=== PATIENT | male | born 1975 | race Caucasian/White ===

== ENCOUNTER 2023-02-22 09:44 | Outpatient (CLI) | payer OTHER | END 2023-02-22 09:45 | disposition home or self-care (01) | LOC: CSHRAD 09:44 | PROVIDERS: ATTEND Orthopaedic Surgery | DX: M54.50 Low back pain, unspecified (principal); M47.816 Spondylosis without myelopathy or radiculopathy, lumbar region | CPT/HCPCS: 72100 ==

== ENCOUNTER 2023-06-05 13:47 | Outpatient (CLI) | payer OTHER | END 2023-06-05 13:48 | disposition home or self-care (01) | LOC: CSHLAB 13:47 | PROVIDERS: ATTEND Orthopaedic Surgery | DX: Z01.818 Encounter for other preprocedural examination (principal); M54.50 Low back pain, unspecified; M54.16 Radiculopathy, lumbar region | CPT/HCPCS: 86850; 86900; 86901; 93005; 93010 ==

== ENCOUNTER 2023-06-06 07:34 | Inpatient (IN) | payer OTHER ==
[2023-06-05 12:42] VITALS: BMI 27.0
[~2023-06-06 07:34] MED LIST: Bupivacaine 0.25% HCL 30 ML VIAL ONE; EPINEPHrine 1 MG/ML VIAL ONE
[2023-06-06] MEDS ORDERED: Midazolam HCl 5 mg/5 ml Vial ONE (07:59)
[2023-06-06] MEDS ORDERED: Fentanyl 250 MCG/5 ML VIAL ONE (07:59)
[2023-06-06] MEDS ORDERED: Dexamethasone 4 mg/ml Vial ONE (07:59)
[2023-06-06] MEDS ORDERED: SUCCINYLCHOLINE/SOD CL,ISO/PF 200 MG/10 ML SYRINGE FS ONE (07:59)
[2023-06-06] MEDS ORDERED: Lidocaine 2% PF 5 ML VIAL ONE (07:59)
[2023-06-06] MEDS ORDERED: PROPOFOL 40 ML ONE (07:59)
[2023-06-06] MEDS ORDERED: Ondansetron PF 4 MG/2 ML Vial ONE (07:59)
[2023-06-06] MEDS ORDERED: Rocuronium Bromide 10 MG/ML (10ML VIAL) ONE (07:59)
[2023-06-06] MEDS ORDERED: KETAMINE 100 MG/ML (5ML VIAL) ONE (08:07)
[2023-06-06] MEDS ORDERED: Propofol 1,000 MG/100 ML VIAL IV ONE ×4 (08:08→12:01)
[2023-06-06] MEDS ORDERED: Sevoflurane 250 ML INH ANEST BOTTLE ONE (08:09)
[2023-06-06] MEDS ORDERED: Famotidine/PF 20 mg/2ml Vial ONE (08:23)
[2023-06-06] MEDS ORDERED: CEFAZOLIN 2 GM VIAL ONE ×3 (09:03→09:18)
[2023-06-06] MEDS ORDERED: EPINEPHrine 1 MG/ML AMP ONE (09:18)
[2023-06-06] MEDS ORDERED: Bupivacaine 0.25% HCL 30 ML VIAL ONE (09:18)
[2023-06-06] MEDS ORDERED: SUGAMMADEX SODIUM 200 MG/2 ML VIAL ONE (09:25)
[2023-06-06] MEDS ORDERED: HYDROmorphone 0.5 MG/0.5 ML SYRINGE ONE (09:33)
[2023-06-06] MEDS ORDERED: ePHEDrine Sulfate 50 MG/10 ML VIAL ONE (10:06)
[2023-06-06] MEDS ORDERED: fentaNYL 50 mcg/mL 1 mL Vial ONE (13:20)
[2023-06-06] MEDS ORDERED: PHENYLEPHRINE-NS 100 MCG/ML 10 ML SYRINGE ONE (13:44)
[2023-06-06] MEDS ORDERED: TETANUS, DIPHTHERIA TOX,ADULT (TDVAX) 0.5 ML VIAL IM ONE (13:58)
[2023-06-06] MEDS ORDERED: Morphine 4 MG/ML VIAL SLOW IVP PRN (13:58)
[2023-06-06] MEDS ORDERED: Communication Order-Pharmacy FS PRN (14:00)
[2023-06-06] MEDS ORDERED: SILDENAFIL CITRATE 100 MG PO PRN (14:01)
[2023-06-06] MEDS ORDERED: Fluticasone Propionate Nasal Spray 16 gm Bottle NASAL PRN (14:01)
[2023-06-06] MEDS ORDERED: Acetaminophen 500 MG TAB PO PRN (14:01)
[2023-06-06] MEDS ORDERED: Dextrose 50% Abboject 50 ML SYRINGE SLOW IVP PRN (14:05)
[2023-06-06] MEDS ORDERED: Dextrose 5% in Water 1,000 ML IV PRN (14:05)
[2023-06-06] MEDS ORDERED: Glucagon 1 MG/ML KIT IM PRN (14:05)
[2023-06-06] MEDS: CEFAZOLIN 2 GM in Sodium Chloride 0.9% 100 ML IVPB SCH ×2 (16:08→22:32)
[2023-06-06] MEDS: HYDROcodone/Acetaminophen 10/325 mg Tablet PO PRN ×2 (18:20→22:27)
[2023-06-06] MEDS ORDERED: [UNRECOGNIZED DRUG - OTHER] PO SCH (21:00)
[2023-06-06] MEDS: Insulin Regular 300 UNITS/3 ML VIAL SC PRN (22:10)
[2023-06-06] MEDS: Multivit, Therapeutic 1 TAB PO SCH (22:15)
[2023-06-06] MEDS: Aspirin 81 mg Enteric Coated Tablet PO SCH (22:16)
[2023-06-06] MEDS: Lisinopril 20 MG TAB PO SCH (22:17)
[2023-06-06] MEDS: hydrALAZINE 25 MG TAB PO SCH (22:17)
[2023-06-06] MEDS: FLUoxetine HCl 20 MG CAP PO SCH (22:18)
[2023-06-06] MEDS: Amlodipine 10 MG TAB PO SCH (22:18)
[2023-06-06] MEDS: Atorvastatin Calcium 40 MG TAB PO SCH (22:19)
[2023-06-07] MEDS: HYDROcodone/Acetaminophen 10/325 mg Tablet PO PRN ×5 (02:31→21:21)
[2023-06-07] MEDS: CEFAZOLIN 2 GM in Sodium Chloride 0.9% 100 ML IVPB SCH ×2 (06:53→14:08)
[2023-06-07] MEDS: Aspirin 81 mg Enteric Coated Tablet PO SCH ×2 (10:42→21:19)
[2023-06-07] MEDS: Bupropion 150 MG SR.TAB PO SCH ×2 (10:42→14:09)
[2023-06-07] MEDS: clonazePAM 0.5 MG TAB PO SCH ×2 (16:10→21:20)
[2023-06-07] MEDS ORDERED: Nystatin 500,000 UNITS/5 ML UDCUP SSW SCH (19:15)
[2023-06-07] MEDS: hydrALAZINE 25 MG TAB PO SCH (21:18)
[2023-06-07] MEDS: Multivit, Therapeutic 1 TAB PO SCH (21:18)
[2023-06-07] MEDS: FLUoxetine HCl 20 MG CAP PO SCH (21:18)
[2023-06-07] MEDS: Nystatin 500,000 UNITS/5 ML UDCUP SSW SCH (21:18)
[2023-06-07] MEDS: Lisinopril 20 MG TAB PO SCH (21:19)
[2023-06-07] MEDS: Atorvastatin Calcium 40 MG TAB PO SCH (21:20)
[2023-06-07] MEDS: Amlodipine 10 MG TAB PO SCH (21:20)
[2023-06-08 05:53] VITALS: BP 148/68; TEMP 98.6
[2023-06-08] MEDS: Insulin Regular 300 UNITS/3 ML VIAL SC PRN (06:48)
[2023-06-08] MEDS: HYDROcodone/Acetaminophen 10/325 mg Tablet PO PRN (06:48)
[2023-06-08] MEDS: Nystatin 500,000 UNITS/5 ML UDCUP SSW SCH (10:01)
[2023-06-08] MEDS: Aspirin 81 mg Enteric Coated Tablet PO SCH (10:02)
[2023-06-08] MEDS: clonazePAM 0.5 MG TAB PO SCH (10:02)
[2023-06-08] MEDS: Bupropion 150 MG SR.TAB PO SCH (10:02)
== END 2023-06-08 11:00 | disposition home or self-care (01) | DRG 458 ==
LOC: CSHTELE 07:34
PROVIDERS: ADMIT Orthopaedic Surgery; ATTEND Orthopaedic Surgery
PROC: 0SG107J Fusion of 2 or more Lumbar Vertebral Joints with Autologous Tissue Substitute, Posterior Approach, Anterior Column, Open Approach (ICD-10-PCS; principal; 2023-06-06)
PROC: 3E033XZ Introduction of Vasopressor into Peripheral Vein, Percutaneous Approach (ICD-10-PCS; 2023-06-06)
DX: M51.16 Intervertebral disc disorders with radiculopathy, lumbar region (principal); M41.56 Other secondary scoliosis, lumbar region; E11.22 Type 2 diabetes mellitus with diabetic chronic kidney disease; G47.33 Obstructive sleep apnea (adult) (pediatric); F32.A Depression, unspecified; N18.9 Chronic kidney disease, unspecified; Z79.899 Other long term (current) drug therapy
CPT/HCPCS: 36415; 36416; 72110; 82565; 84520; 86850; 86900; 86901; 94760; C1713; C1889; J0171; J0665; J1100; J1815; J2001; J2250; J2270; J2405; J2704; J3010; J3490; S0028

== ENCOUNTER 2024-06-10 12:54 | Outpatient (CLI) | payer OTHER | END 2024-06-10 12:55 | disposition home or self-care (01) | LOC: CSHCT 12:54 | PROVIDERS: ATTEND Orthopaedic Surgery | DX: M47.26 Other spondylosis with radiculopathy, lumbar region (principal); Z98.890 Other specified postprocedural states | CPT/HCPCS: 72131 ==